=== PATIENT | male | born 1975 | race Caucasian/White ===

== ENCOUNTER → 2022-06-15 06:51 | Outpatient (CLI) | payer OTHER, SELFPAY ==
--- NOTE | ~2022-06-15 | MR_ITS ---
EXAMINATION: MR knee RT wo con DATE: 06/15/2022 07:29 INDICATION: Right knee pain TECHNIQUE: Magnetic resonance imaging (MRI) of the right knee was performed without intravenous contr ast. Sequences included coronal PD-weighted FSE, coronal PD-weighted FS FSE, sagittal T2-weighted FS E, sagittal PD-weighted FS FSE and axial PD weighted fat saturated FSE. COMPARISON: None. FINDINGS: Medial compartment: Complex tear of the medial meniscus which includes a full-thickness radial component at the meniscal body as well as a longitudinal horizontal component which extends more posteriorly into the posterior horn. There is also a small longitudinal vertical component extending to the inferior articular surf fidelia at the peripheral third of the posterior body. Mild partial-thickness cartilage loss with minimal chondral surface irregularity along the anterior weightbearing medial femoral condyle and along the medial aspect of the medial tibial plateau. Minimal subarticular edema-like signal change at the medi al side of the medial tibial plateau which could be related to the overlying chondromalacia or more l ikely due to reactive edema related to altered stress distribution resulting from the meniscal tear. Lateral compartment: Lateral meniscus is normal. Articular cartilage is normal. Patellofemoral compartment: Small central subchondral osteophyte and mild edema-like subarticular signal change associated with a region of deep chondral fissuring at the medial patellar facet. Remaining patellofemoral cartilage i s normal. Ligaments and tendons: Anterior and posterior cruciate ligaments are normal. The fibular collateral ligament complex is norm al. There is mild thickening of the proximal medial collateral ligament without associated increased signal or surrounding edema likely mild scarring related to chronic sprain. The extensor mechanism is normal. The visualized medial and lateral hamstring tendons as well as the iliotibial band are or[place] l. Fluid: Minimal knee joint effusion at the suprapatellar pouch. There is a medial plical band which does not extend across the medial margin of the medial trochlea. No loose osteochondral bodies identified. Sma ll Lopez's cyst. Osseous/other: There are a few small low signal intensity bone islands in the distal femur. No fracture or pathologi c marrow replacing process. IMPRESSION: 1. Complex medial meniscal tear. 2. 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 3. 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 4. Suggestion of mild scarring related to chronic sprain of the proximal medial collateral ligament. Reviewed, dictated and finalized at location A. IMPRESSION: 1. Complex medial meniscal tear. 2. Mild osteoarthritis with moderate grade chondromalacia in the medial compart ment. 3. Mild patellofemoral osteoarthritis with high-grade chondral malacia the medi al patellar facet. 4. Suggestion of mild scarring related to chronic sprain of the proximal medial collateral ligament.
== END ==
PROVIDERS: PCP Family Medicine; Visit Provider Nurse Practitioner Family
DX: S83.231A Complex tear of medial meniscus, current injury, right knee, initial encounter (principal); M17.11 Unilateral primary osteoarthritis, right knee; M94.261 Chondromalacia, right knee; T14.90XA Injury, unspecified, initial encounter
CPT/HCPCS: 73721